=== PATIENT | female | born 1985 | race Caucasian/White ===

== ENCOUNTER 2017-09-22 08:41 | Emergency (ER) | payer MEDICAID ==
[2017-09-22] MEDS ORDERED: Sodium Chloride 0.9% 1,000 ML IV STA (09:11)
--- NOTE | 2017-09-22 09:28 | C.PDOC ---
History Of Present Illness 31 y/o female presents to ED for complaints of 101 fever associated with vomiting and diarrhea that began 3 days ago. Patient also reports associated symptoms of mild headache and generalized weakness. Denies abdominal pain. LMP . 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 Time Seen by Provider: 09/22/17 09:04 Chief Complaint (Nursing): Fever History Per: Patient History/Exam Limitations: no limitations Onset/Duration Of Symptoms: Days (3) Current Symptoms Are (Timing): Still Present Location Of Pain: Headache Sick Contacts (Context): Individual(s) At Work Associated Symptoms: Fever, Vomiting, Diarrhea. denies: Chills, Cough, Nasal Congestion Ear Symptoms: Bilateral: None Recent travel outside of the [place]: No Past Medical History Reviewed: Historical Data, Nursing Documentation, Vital Signs Vital Signs: Last Vital Signs Temp 99.4 F 09/22/17 10:33 Pulse 76 09/22/17 10:33 Resp 16 09/22/17 10:33 BP 96/59 L 09/22/17 10:33 Pulse Ox 98 09/22/17 11:50 - Medical History PMH: No Chronic Diseases Family History: States: No Known Family Hx - Social History Hx Tobacco Use: No Hx Alcohol Use: Yes Hx Substance Use: No - Immunization History Hx Tetanus Toxoid Vaccination: No Hx Influenza Vaccination: No Hx Pneumococcal Vaccination: No Review Of Systems Constitutional: Positive for: Fever. Negative for: Chills Gastrointestinal: Positive for: Vomiting, Diarrhea. Negative for: Abdominal Pain Skin: Negative for: Rash Neurological: Negative for: Weakness, Numbness Physical Exam - Physical Exam Appears: Non-toxic, No Acute Distress Skin: Warm, Dry, No Rash Head: Atraumatic, Normacephalic Eye(s): bilateral: Normal Inspection, PERRL, EOMI Ear(s): Bilateral: Normal Nose: Normal, No Discharge Oral Mucosa: Moist Tongue: Normal Appearing, No Swelling Throat: Normal, No Erythema, No Exudate, No Drooling Neck: Supple Lymphatic: No Adenopathy Chest: Symmetrical, No Tenderness Cardiovascular: Rhythm Regular, No Murmur Respiratory: Normal Breath Sounds, No Decreased Breath Sounds, No Rales, No Rhonchi, No Wheezing Gastrointestinal/Abdominal: Soft, No Tenderness Extremity: Normal ROM Extremity: Bilateral: Atraumatic, Normal Color And Temperature, Normal ROM Neurological/Psych: Oriented x3 (Awake and alert), Normal Speech (Speaking in full sentences ) Gait: Steady ED Course And Treatment - Laboratory Results Result Diagrams: 09/22/17 09:31 09/22/17 10:24 O2 Sat by Pulse Oximetry: 98 (RA) Pulse Ox Interpretation: Normal Progress Note: Administered Tylenol, Zofran, Protonix, and IV fluids. Ordered blood work and urinalysis. On re-evaluation patient feels better, afebrile, tolerates po. Patient is stable to be d/c home with PMD follow up. Disposition - Disposition Referrals: Austen Walton MD [Staff Provider] - Disposition: HOME/ ROUTINE Disposition Time: 11:47 Condition: STABLE Additional Instructions: Follow up wityh your PMD within 1-2 days. Return to ED if feel worse. 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 - Scribe Statement The provider has reviewed the documentation as recorded by the Scribyousif Carrillo All medical record entries made by the Scribe were at my direction and personally dictated by me. I have reviewed the chart and agree that the record accurately reflects my personal performance of the history, physical exam, medical decision making, and the department course for this patient. I have also personally directed, reviewed, and agree with the discharge instructions and disposition.
[2017-09-22] MEDS ORDERED: Sodium Chloride 0.9% 250 ML IV ONE (09:34)
[2017-09-22 09:40] LABS: BASO % 0.3 % (0.0-2.0); EOS % 0.4 % (0.0-4.0); HEMOGLOBIN 11.8 g/dL (11.0-16.0); LYMPH # 0.8 K/uL (1.0-4.3); LYMPH % 6.6 % (20.0-40.0); MEAN CELL VOLUME 82.6 fL (81.0-99.0); MEAN CORPUSCULAR HEMOGLOBIN 27.3 pg (27.0-31.0); MEAN CORPUSCULAR HGB CONC 33.1 g/dL (33.0-37.0); MEAN PLATELET VOLUME 10.2 fL (7.2-11.7); MONO # 0.5 K/uL (0.0-0.8); MONO % 4.3 % (0.0-10.0); NEUT # 10.7 K/uL (1.8-7.0); NEUT % 88.4 % (50.0-75.0); NRBC % 0.1 % (0.0-2.0); PLATELET COUNT 187 K/uL (130-400); RBC 4.32 Mil/uL (3.80-5.20); RED CELL DISTRIBUTION WIDTH 15.3 % (11.5-14.5); WHITE BLOOD COUNT 12.1 K/uL (4.8-10.8)
[2017-09-22 09:52] LABS: HCG,QUALITATIVE URINE NEGATIVE (NEGATIVE)
[2017-09-22 09:56] LABS: SQUAMOUS EPITHIAL 3 /hpf (0-5); URINE BACTERIA RARE (<OCC); URINE BILIRUBIN NEGATIVE (NEGATIVE); URINE BLOOD NEGATIVE (NEGATIVE); URINE CLARITY Clear (Clear); URINE COLOR Yellow (YELLOW); URINE GLUCOSE (UA) NORMAL (Normal); URINE LEUKOCYTE ESTERASE 2+ Leu/uL (Negative); URINE PROTEIN NEGATIVE (NEGATIVE); URINE UROBILINOGEN NORMAL mg/dL (0.2-1.0)
[2017-09-22 10:10] LABS: ANISOCYTOSIS SLIGHT; BANDS 4 % (0-2); EOSINOPHIL 1 % (0-4); LYMPHOCYTE 5 % (20-40); MONOCYTE 2 % (0-10); NEUTROPHIL 88 % (50-75); PLATELET ESTIMATE NORMAL (NORMAL); TOTAL CELLS COUNTED 100
[2017-09-22 10:34] VITALS: BP 96/59; PULSE 76; RESP 16; TEMP 99.4
[2017-09-22 10:34] LABS: ALB/GLOB RATIO 1.2 (1.0-2.1); ALBUMIN 4.1 g/dL (3.5-5.0); ALT/SGPT 21 U/L (9-52); AST/SGOT 18 U/L (14-36); BLOOD UREA NITROGEN 7 mg/dL (7-17); CALCIUM 8.9 mg/dl (8.6-10.4); GFR AFRICAN-AMERICAN > 60; GFR NON-AFRICAN AMERICAN > 60; LIPASE 49 U/L (23-300)
[2017-09-22 11:49] VITALS: O2SAT 98
== END 2017-09-22 12:08 | disposition home or self-care (01) ==
LOC: C.ER 08:41
DX: K52.9 Noninfective gastroenteritis and colitis, unspecified (principal)
CPT/HCPCS: 80053; 81001; 83690; 84703; 85025; 96361; 96374; 96375; 99285; C9113; J2405; J7030

== ENCOUNTER 2018-08-05 21:22 | Emergency (ER) | payer MEDICAID ==
[2018-08-05 21:49] VITALS: O2SAT 98
--- NOTE | 2018-08-05 22:08 | C.PDOC ---
History Of Present Illness 32 y/o female presents complaining of abdominal pain and 1 episode of diarrhea today. She states that she received chocolate from her uncle who had just returned from [facility] yesterday and made hot chocolate with it for her and her son in the morning. She states later that afternoon, she had 1 episode of diarrhea then developed epigastric abdominal pain later this evening. She reports her son having abdominal pain but 1 episode of nonbilious vomiting. She denies any other sick contacts, fever, chills, vomiting, or weakness. Time Seen by Provider: 08/05/18 22:08 Chief Complaint (Nursing): Abdominal Pain History Per: Patient History/Exam Limitations: no limitations Onset/Duration Of Symptoms: Hrs Current Symptoms Are (Timing): Still Present Context: Food Severity: Mild Pain Scale Rating Of: 3 Location Of Pain/Discomfort: Epigastric Radiation Of Pain To:: None Quality Of Discomfort: Aching Associated Symptoms: Diarrhea, Loss Of Appetite. denies: Fever, Chills, Nausea, Vomiting, Back Pain, Chest Pain, Constipation, Urinary Symptoms Exacerbating Factors: None Alleviating Factors: Rest Last Bowel Movement: Today Recent travel outside of the [place]: No Past Medical History Reviewed: Historical Data, Nursing Documentation, Vital Signs Vital Signs: Last Vital Signs Temp 99.6 F 08/05/18 21:43 Pulse 100 H 08/05/18 21:43 Resp 18 08/05/18 21:43 BP 104/69 08/05/18 21:43 Pulse Ox 98 08/05/18 21:43 Primary Care Provider: Austen Walton Family History: States: No Known Family Hx - Social History Hx Tobacco Use: No Hx Alcohol Use: Yes Hx Substance Use: No - Immunization History Hx Tetanus Toxoid Vaccination: No Hx Influenza Vaccination: No Hx Pneumococcal Vaccination: No Review Of Systems Constitutional: Negative for: Fever, Chills Respiratory: Negative for: Cough Gastrointestinal: Positive for: Abdominal Pain, Diarrhea. Negative for: Nausea, Vomiting Skin: Negative for: Rash Neurological: Negative for: Weakness, Dizziness Physical Exam - Physical Exam Appears: Non-toxic, No Acute Distress Skin: Normal Color, Warm, Dry Head: Atraumatic, Normacephalic Eye(s): bilateral: Normal Inspection Ear(s): Bilateral: Normal Nose: No Discharge Oral Mucosa: Moist Tongue: Normal Appearing Lips: Normal Appearing Throat: No Erythema, No Exudate Neck: Normal ROM, Supple Cardiovascular: Rhythm Regular Respiratory: Normal Breath Sounds, No Wheezing Gastrointestinal/Abdominal: Soft, No Tenderness Back: No CVA Tenderness Neurological/Psych: Oriented x3, Normal Speech, Normal Cognition ED Course And Treatment O2 Sat by Pulse Oximetry: 98 Medical Decision Making Medical Decision Making: Plan: Zofran and tylenol given PO PO Challenge tolerated Continue same meds at home patient advised to follow up with PMD and return to ED if symptoms worsen patient is stable for discharge Disposition Counseled Patient/Family Regarding: Diagnosis, Need For Followup, Rx Given - Disposition Referrals: Austen Walton MD [Staff Provider] - Disposition: HOME/ ROUTINE Disposition Time: 23:04 Condition: IMPROVED Additional Instructions: Continue Zofran and Tylenol as prescribed Rest and hydration BRAT diet (bananas, rice, apples, toast) no dairy follow up with PMD in 1-2 days Return to ED if symptoms worsen Prescriptions: Acetaminophen [Tylenol 325mg tab] 325 mg PO Q6 PRN #30 tab PRN Reason: Pain, Moderate (4-7) Ondansetron [Zofran] 4 mg PO Q8H PRN #9 tab PRN Reason: Nausea/Vomiting Instructions: Nausea and Vomiting, Adult (DC) Forms: [facility] (Romansh), Work Excuse - Clinical Impression Clinical Impression: Diarrhea, Abdominal wall pain
[2018-08-05 23:19] VITALS: BP 99/61; PULSE 103; RESP 20; TEMP 99.5
== END 2018-08-05 23:58 | disposition home or self-care (01) ==
LOC: C.ER 21:22
DX: R10.13 Epigastric pain (principal); R19.7 Diarrhea, unspecified